=== PATIENT | female | born 1990 | race American Indian/Alaskan Native ===

== ENCOUNTER 2016-06-10 20:19 | Emergency (ER) | payer MEDICAID ==
[2016-06-10 20:26] VITALS: BP 105/69
== END 2016-06-10 23:45 | disposition left against medical advice (07) ==
LOC: ED 20:19
DX: K08.89 Other specified disorders of teeth and supporting structures (principal); Z53.21 Procedure and treatment not carried out due to patient leaving prior to being seen by health care provider